=== PATIENT | female | born 1995 | race Caucasian/White ===

== ENCOUNTER 2017-09-23 04:26 | Emergency (ER) | payer BC ==
[2017-09-23 05:37] LABS: BASOPHIL % 0.9 % (0-2); PLATELET COUNT 277 x10^3mcL (130-400); RED CELL DISTRIBUTION WIDTH 13.9 % (11.5-14.5)
[2017-09-23 05:49] LABS: CALCIUM 8.7 mg/dL (8.5-10.1); CARBON DIOXIDE 30.2 mmol/L (21-32); CHLORIDE SERUM 105 mmol/L (98-107); CREATININE SERUM 0.9 mg/dL (0.6-1.0); GFR1 > 60 mL/min; GLUCOSE SERUM 109 mg/dL (74-106); POTASSIUM SERUM 3.2 mmol/L (3.5-5.1); SODIUM SERUM 141 mmol/L (136-145)
[2017-09-23 05:54] LABS: ALBUMIN 3.6 g/dL (3.4-5.0); ALKALINE PHOSPHATASE 91 U/L (46-116); ALT/SGPT 15 U/L (14-59); AST/SGOT 11 U/L (15-37); BILIRUBIN TOTAL 0.5 mg/dL (0.20-1.00); LIPASE 195 IU/L (73-393); TOTAL PROTEIN, SERUM 6.8 g/dL (6.4-8.2)
[2017-09-23 06:22] VITALS: BP 121/77
== END 2017-09-23 06:22 | disposition home or self-care (01) ==
LOC: ED 04:26
PROVIDERS: Emergency Medicine
DX: G89.29 Other chronic pain (principal); R10.13 Epigastric pain; E87.6 Hypokalemia; F32.9 Major depressive disorder, single episode, unspecified; M79.7 Fibromyalgia; F12.10 Cannabis abuse, uncomplicated
CPT/HCPCS: 36415

== ENCOUNTER 2018-01-31 13:21 | Emergency (ER) | payer MEDICAID ==
[~2018-01-31] VITALS: Ht 170.2 cm; Wt 86.2 kg
[2018-01-31 13:44] VITALS: BP 136/89; Ht 170.2 cm; Wt 86.2 kg
== END 2018-01-31 14:39 | disposition home or self-care (01) ==
LOC: ED 13:21
DX: S83.91XA Sprain of unspecified site of right knee, initial encounter (principal); M79.7 Fibromyalgia; J45.909 Unspecified asthma, uncomplicated; X58.XXXA Exposure to other specified factors, initial encounter; Y93.89 Activity, other specified; Y92.89 Other specified places as the place of occurrence of the external cause; Y99.8 Other external cause status

== ENCOUNTER 2018-04-08 09:10 | Emergency (ER) | payer OTHER ==
[~2018-04-08] VITALS: Ht 170.2 cm; Wt 79.8 kg
[2018-04-08 09:15] VITALS: Ht 170.2 cm; Wt 79.8 kg
[2018-04-08 11:20] VITALS: BP 131/74
== END 2018-04-08 11:20 | disposition home or self-care (01) ==
LOC: ED 09:10
DX: N39.0 Urinary tract infection, site not specified (principal); R11.2 Nausea with vomiting, unspecified; J45.909 Unspecified asthma, uncomplicated
CPT/HCPCS: J1885; Q0162

== ENCOUNTER 2018-05-07 12:05 | Emergency (ER) | payer OTHER ==
[~2018-05-07] VITALS: Ht 170.2 cm; Wt 76.2 kg
[2018-05-07 12:13] VITALS: Ht 170.2 cm; Wt 76.2 kg
[2018-05-07 12:59] LABS: CALCIUM 9.8 mg/dL (8.5-10.1); CARBON DIOXIDE 25.4 mmol/L (21-32); CHLORIDE SERUM 104 mmol/L (98-107); CREATININE SERUM 0.8 mg/dL (0.6-1.0); GFR1 > 60 mL/min; GLUCOSE SERUM 90 mg/dL (74-106); POTASSIUM SERUM 3.8 mmol/L (3.5-5.1); SODIUM SERUM 141 mmol/L (136-145)
[2018-05-07 13:04] LABS: ALBUMIN 4.1 g/dL (3.4-5.0); ALKALINE PHOSPHATASE 87 U/L (46-116); ALT/SGPT 12 U/L (14-59); AMYLASE 50 U/L (25-115); AST/SGOT 10 U/L (15-37); BILIRUBIN TOTAL 0.86 mg/dL (0.20-1.00); LIPASE 111 IU/L (73-393)
[2018-05-07 13:08] LABS: BASOPHIL % 0.3 % (0-2); PLATELET COUNT 290 x10^3mcL (130-400); RED CELL DISTRIBUTION WIDTH 13.1 % (11.5-14.5)
[2018-05-07 14:42] VITALS: BP 133/78
== END 2018-05-07 14:42 | disposition home or self-care (01) ==
LOC: ED 12:05
PROVIDERS: Specialist
DX: K31.84 Gastroparesis (principal); J45.909 Unspecified asthma, uncomplicated; M79.7 Fibromyalgia
CPT/HCPCS: 83880; J1885; J2405; J3490

== ENCOUNTER 2018-06-08 16:00 | Emergency (ER) | payer OTHER ==
[~2018-06-08] VITALS: Ht 170.2 cm; Wt 77.1 kg
[2018-06-08 18:22] LABS: BASOPHIL % 0.9 % (0-2); PLATELET COUNT 291 x10^3mcL (130-400); RED CELL DISTRIBUTION WIDTH 12.9 % (11.5-14.5)
[2018-06-08 18:48] LABS: UA SPECIFIC GRAVITY >=1.030 (1.005-1.035); microscopic required? YES; urine erythrocyte TRACE (NEGATIVE)
[2018-06-08 18:58] VITALS: BP 131/74
[2018-06-08 19:04] LABS: CALCIUM 9.1 mg/dL (8.5-10.1); CARBON DIOXIDE 26.2 mmol/L (21-32); CHLORIDE SERUM 105 mmol/L (98-107); CREATININE SERUM 0.8 mg/dL (0.6-1.0); GFR1 > 60 mL/min; GLUCOSE SERUM 87 mg/dL (74-106); POTASSIUM SERUM 3.8 mmol/L (3.5-5.1); SODIUM SERUM 141 mmol/L (136-145)
[2018-06-08 19:12] LABS: ALKALINE PHOSPHATASE 67 U/L (46-116); AMYLASE 66 U/L (25-115); AST/SGOT 16 U/L (15-37); BILIRUBIN TOTAL 0.75 mg/dL (0.20-1.00); LIPASE 120 IU/L (73-393)
[2018-06-08 19:20] LABS: ALT/SGPT 14 U/L (14-59)
[2018-06-08 19:36] LABS: AMPHETAMINE QUAL UR NONE DETECTED (See below)
== END 2018-06-08 20:22 | disposition home or self-care (01) ==
LOC: ED 16:00
PROVIDERS: Emergency Medicine
DX: K92.0 Hematemesis (principal); N39.0 Urinary tract infection, site not specified; J45.909 Unspecified asthma, uncomplicated; M79.7 Fibromyalgia; F41.8 Other specified anxiety disorders; F12.20 Cannabis dependence, uncomplicated
CPT/HCPCS: G0480; J3490; J7050; Q0162

== ENCOUNTER 2018-06-10 10:39 | Emergency (ER) | payer OTHER ==
[~2018-06-10] VITALS: Ht 170.2 cm; Wt 76.8 kg
[2018-06-10 10:44] VITALS: Ht 170.2 cm; Wt 76.8 kg
[2018-06-10 11:58] LABS: BASOPHIL % 0.6 % (0-2); PLATELET COUNT 304 x10^3mcL (130-400); RED CELL DISTRIBUTION WIDTH 12.9 % (11.5-14.5)
[2018-06-10 12:00] LABS: UA SPECIFIC GRAVITY <=1.005 (1.005-1.035); microscopic required? YES; urine erythrocyte TRACE (NEGATIVE)
[2018-06-10 12:27] LABS: ALKALINE PHOSPHATASE 74 U/L (46-116); AST/SGOT 13 U/L (15-37); BILIRUBIN TOTAL 0.61 mg/dL (0.20-1.00); CALCIUM 8.9 mg/dL (8.5-10.1); CARBON DIOXIDE 28.4 mmol/L (21-32); CHLORIDE SERUM 103 mmol/L (98-107); GFR1 > 60 mL/min; GLUCOSE SERUM 119 mg/dL (74-106); LIPASE 122 IU/L (73-393); POTASSIUM SERUM 3.7 mmol/L (3.5-5.1); SODIUM SERUM 140 mmol/L (136-145); TOTAL PROTEIN, SERUM 6.8 g/dL (6.4-8.2)
[2018-06-10 12:35] LABS: ALT/SGPT 16 U/L (14-59)
[2018-06-10 13:08] VITALS: BP 123/68
== END 2018-06-10 13:08 | disposition home or self-care (01) ==
LOC: ED 10:39
PROVIDERS: Emergency Medicine
DX: K22.6 Gastro-esophageal laceration-hemorrhage syndrome (principal); F12.90 Cannabis use, unspecified, uncomplicated; J45.909 Unspecified asthma, uncomplicated; F32.9 Major depressive disorder, single episode, unspecified
CPT/HCPCS: 36415; J3010; Q0162

== ENCOUNTER 2018-08-23 08:47 | Day surgery (SDC) | payer OTHER ==
[~2018-08-23] VITALS: Ht 170.2 cm; Wt 77.1 kg
[2018-08-23 09:53] VITALS: BP 135/75
[2018-08-23 15:29] VITALS: BP 130/72
== END 2018-08-23 13:05 | disposition home or self-care (01) ==
LOC: GI 08:47 → OR 13:30
PROVIDERS: Internal Medicine Gastroenterology
PROC: 0DB68ZX Excision of Stomach, Via Natural or Artificial Opening Endoscopic, Diagnostic (ICD-10-PCS; principal; 2018-08-23 12:30)
DX: K29.70 Gastritis, unspecified, without bleeding (principal); K26.9 Duodenal ulcer, unspecified as acute or chronic, without hemorrhage or perforation
CPT/HCPCS: 43235; J1200; J1610; J2250; J3010; J3490

== ENCOUNTER 2018-11-01 06:50 | Emergency (ER) | payer OTHER ==
[~2018-11-01] VITALS: Ht 170.2 cm; Wt 79.8 kg
[2018-11-01 07:01] VITALS: BP 145/74; Ht 170.2 cm; Wt 79.8 kg
== END 2018-11-01 07:52 | disposition home or self-care (01) ==
LOC: ED 06:50
DX: G89.29 Other chronic pain (principal); M79.10 Myalgia, unspecified site; F32.9 Major depressive disorder, single episode, unspecified; F41.9 Anxiety disorder, unspecified; J45.909 Unspecified asthma, uncomplicated; M79.7 Fibromyalgia

== ENCOUNTER 2019-04-21 04:44 | Emergency (ER) | payer OTHER ==
[~2019-04-21] VITALS: Ht 170.2 cm; Wt 80.9 kg
[2019-04-21 04:50] VITALS: Ht 170.2 cm; Wt 80.9 kg
[2019-04-21 06:17] LABS: CALCIUM 9.2 mg/dL (8.5-10.1); CARBON DIOXIDE 23.8 mmol/L (21-32); CHLORIDE SERUM 112 mmol/L (98-107); CREATININE SERUM 0.7 mg/dL (0.6-1.0); GFR1 > 60 mL/min; GLUCOSE SERUM 83 mg/dL (74-106); POTASSIUM SERUM 3.8 mmol/L (3.5-5.1); SODIUM SERUM 146 mmol/L (136-145)
[2019-04-21 06:21] LABS: ALBUMIN 3.8 g/dL (3.4-5.0); ALKALINE PHOSPHATASE 60 U/L (46-116); ALT/SGPT 15 U/L (14-59); AST/SGOT 10 U/L (15-37); BILIRUBIN TOTAL 0.37 mg/dL (0.20-1.00); TOTAL PROTEIN, SERUM 6.6 g/dL (6.4-8.2)
[2019-04-21 06:37] LABS: AMPHETAMINE QUAL UR NONE DETECTED (See below)
[2019-04-21 06:55] LABS: BASOPHIL % 0.4 % (0-2); PLATELET COUNT 299 x10^3mcL (130-400); RED CELL DISTRIBUTION WIDTH 13.7 % (11.5-14.5)
[2019-04-21 07:48] VITALS: BP 118/80
== END 2019-04-21 07:48 | disposition home or self-care (01) ==
LOC: ED 04:44
PROVIDERS: Emergency Medicine
DX: J20.9 Acute bronchitis, unspecified (principal); J45.909 Unspecified asthma, uncomplicated; F32.9 Major depressive disorder, single episode, unspecified; F41.9 Anxiety disorder, unspecified; M79.7 Fibromyalgia
CPT/HCPCS: 36415; 85378; J7512; J7620

== ENCOUNTER 2019-08-15 09:44 | Emergency (ER) | payer OTHER ==
[~2019-08-15] VITALS: Ht 170.2 cm; Wt 83.5 kg
[2019-08-15 09:51] VITALS: Ht 170.2 cm; Wt 83.5 kg
[2019-08-15 11:00] LABS: CALCIUM 8.2 mg/dL (8.5-10.1); CARBON DIOXIDE 28.6 mmol/L (21-32); CHLORIDE SERUM 111 mmol/L (98-107); CREATININE SERUM 0.7 mg/dL (0.6-1.0); GFR1 > 60 mL/min; GLUCOSE SERUM 96 mg/dL (74-106); POTASSIUM SERUM 4.2 mmol/L (3.5-5.1); SODIUM SERUM 143 mmol/L (136-145)
[2019-08-15 11:05] LABS: ALKALINE PHOSPHATASE 66 U/L (46-116); ALT/SGPT 11 U/L (14-59); AST/SGOT 14 U/L (15-37); BILIRUBIN TOTAL 0.3 mg/dL (0.20-1.00)
[2019-08-15 11:08] LABS: BASOPHIL % 0.7 % (0-2); PLATELET COUNT 251 x10^3mcL (130-400); RED CELL DISTRIBUTION WIDTH 13.4 % (11.5-14.5)
[2019-08-15 11:09] LABS: ALBUMIN 3.3 g/dL (3.4-5.0); TOTAL PROTEIN, SERUM 5.8 g/dL (6.4-8.2)
[2019-08-15 11:56] LABS: C REACTIVE PROTEIN < 0.2 mg/dL (<=0.9)
[2019-08-15 13:25] LABS: FREE T4 0.82 ng/dL (0.76-1.46); T4(THYROXINE) 5.7 ug/dL (4.7-13.3)
[2019-08-15 14:04] VITALS: BP 121/71
== END 2019-08-15 14:04 | disposition home or self-care (01) ==
LOC: ED 09:44
PROVIDERS: Emergency Medicine
DX: R51 Headache (principal); R53.1 Weakness; M79.10 Myalgia, unspecified site; J45.909 Unspecified asthma, uncomplicated; F32.9 Major depressive disorder, single episode, unspecified; F41.9 Anxiety disorder, unspecified
CPT/HCPCS: 84439; J1885; J3010; J7030